=== PATIENT | male | born 1990 | race Caucasian/White ===

== ENCOUNTER 2018-04-07 21:26 | Emergency (ER) | payer OTHER, SELFPAY ==
[2018-04-07 21:27] VITALS: BP 142/67; PULSE 71; RESP 14; TEMP 37; O2SAT 98; BMI 24.7
[2018-04-07] MEDS: Ondansetron 4 MG/2 ML Vial IV ×2 (22:48→23:29)
[2018-04-07] MEDS: Ketorolac 30 MG/ML Syringe IV (22:48)
[2018-04-07] MEDS: 0.9% Normal Saline 1,000 ML 1000 ML IV (22:48)
[2018-04-07 22:57] LABS: Absolute Lymphocyte Count 2.38 X10^3/ul (0.83-4.51); Absolute Neutrophil Count 11.9 X10^3/uL (2.0-7.7); Basophil# 0.04 X10^3/uL; Basophil% 0.3 % (0-1); Eosinophil# 0.27 X10^3/uL; Eosinophils% 1.8 % (0-5); Hematocrit 47.3 % (40-54); Hemoglobin 16.3 g/dl (13.0-16.5); Lymphocyte # 2.38 X10^3/ul (4.0); Lymphocyte % 15.5 % (19-41); Mean Corp Hgb Conc 34.5 g/gl (32-36); Mean Corpuscular Hgb 31.8 pg (27.0-32.0); Mean Corpuscular Volume 92.4 fL (80-94); Mean Platelet Vol. 9.4 fl (6.2-12.0); Monocyte# 0.69 X10^3/uL; Monocyte% 4.5 % (0-10); Neutrophil # 11.92 X10^3/uL (2.7-7.7); Neutrophil % 77.8 % (47-70); Platelet Count 269 K/mm3 (150-450); RBC Distribution Width CV 12.7 % (11.6-14.6); RBC Distribution Width SD 43.1 fl (35.1-43.9); Red Blood Count 5.12 M/mm3 (4.6-6.2); White Blood Count 15.3 K/mm3 (4.4-11.0)
[2018-04-07 22:58] LABS: POSITIVE COUNT NO; POSITIVE DIFFERENTIAL NO; POSITIVE MORPHOLOGY NO
[2018-04-07 23:18] LABS: AST(SGOT) 57 U/L (15-37); Alanine Aminotransfer ALT/SGPT 63 U/L (16-61); Albumin, Serum 4.1 g/dL (3.2-5.0); Alkaline Phosphatase 58 U/L (45-117); Anion Gap 8 (5-15); BUN 10 mg/dL (7-18); BUN/Creat Ratio 12.6 RATIO (10-20); Bilirubin, Direct 0.15 mg/dL (0.00-0.30); Calcium,Total 8.7 mg/dL (8.5-10.1); Chloride 103 mmol/L (98-107); EST Glomerular Filtration Rate 121 mL/min (>60); Est Glom Filt Rate - Afr Amer 147 mL/min (>60); Estimated Creatinine Clearance 105.22 ml/min; Glucose 110 mg/dL (74-106); Lipase 111 U/L (73-393); Potassium 3.7 mmol/L (3.5-5.1); Protein, Total 7.1 g/dL (6.4-8.2); Sodium Level 139 mmol/L (136-145)
--- NOTE | 2018-04-07 23:22 | CT_ITS ---
STUDY: CT ABDOMEN AND PELVIS WITH CONTRAST REASON FOR EXAM: Male, 27 years old. EPIGASTRIC PAIN RADIATION DOSAGE (If Supplied By Facility): CTDIvol = ( 8.37 ) mGy, DLP = ( 326.13 ) mGycm TECHNIQUE: Transaxial images were obtained from the dome of the diaphragm to the symphysis pubis without oral contrast. 100 ml of Isovue 300 contrast was administered. Sagittal and coronal images were reconstructed. Individualized dose optimization techniques were used for this CT. COMPARISON: None. FINDINGS: The visualized lung bases are unremarkable. The visualized portions of the heart are within normal limits. Normal liver. Normal gallbladder and extrahepatic biliary system. Normal spleen. Normal pancreas. Normal bilateral adrenal glands. Normal right kidney. Normal left kidney. Normal visualized stomach. Normal small intestine. Normal colon. The appendix is visualized and appears normal. Normal abdominal aorta. Normal inferior vena cava. Normal retroperitoneum. Normal urinary bladder. There is a small umbilical hernia containing fat. Normal osseous structures. CT/Abdomen/Pelvis W IV Cont ONLY IMPRESSION: There is a small umbilical hernia containing fat. Electronically Signed: Imtiaz Berry MD at 0:45 EDT Tel , Service support ,
--- NOTE | 2018-04-07 23:56 | ED.VISSUMM ---
- ER Visit Summary Date of Service: 04/07/18 Chief Complaint: Nausea, vomiting and abdominal pain History of Present Illness: The patient is a 27 M past medical history of asthma. Prior hernia repair. Pt. states that around 430 this evening started having nausea vomiting and periumbilical abdominal pain. No fever. No diarrhea. No abdominal trauma. I spoke with the patient's father he states he had a lot of abdominal complaints when he was in high school. Physical Examination: Vital signs are stable. He is afebrile. He does not look septic or toxic. He is actively retching into an emesis. H EENT exam mildly dry mucous membranes. Otherwise unremarkable. Neck nontender. Lungs clear to auscultation bilaterally. Heart regular rhythm no murmur. Abdomen soft nondistended. Normal bowel sounds. No peritoneal signs. He is tender in the periumbilical and epigastric region. No hernias or masses. No signs of it. No significant right upper or right lower quadrant tenderness. No signs of trauma. Positive bowel sounds. He is moving all 4 extremities. They are neurovascularly intact. Back exam nontender. Neurologically is awake and alert. Test Results: CBC showed a elevated white count of 15,000. Normal hemoglobin. No bands. Electrolytes unremarkable. Normal gap and creatinine. Liver enzymes unremarkable ALT and AST slightly elevated. Lipase normal at 111. Emergency Department Course and Treatment: Patient treated with IV fluids times a liter. Zofran x2. Toradol IV x1. On repeat exam he is doing better at 2330. Still complaining of pain however. CT abdomen and pelvis with IV contrast only is pending. Currently he does not have a surgical abdomen. Treatment Plan: [] Disposition: Discharge Impression: Acute abdominal pain with nausea and vomiting of uncertain etiology This note was generated with [employer] dictation software. It may contain incorrect words, spelling, and punctuation that were not noted in review of the chart prior to signing ED Disposition - Plan for ED Patient: Chief Complaint: Nausea/Vomiting Referrals: Stan Escobar DO [Primary Care Provider] -
--- NOTE | 2018-04-08 | ED.DEP ---
ED Disposition - Plan for ED Patient: Disposition: Home or Assisted Living Chief Complaint: Nausea/Vomiting Instructions: ED Nausea Vomiting, ED Abdominal Pain Unkn Cause Prescriptions: Ondansetron [Zofran Odt] 4 mg PO Q4H PRN PRN #10 tab.rapdis PRN Reason: Nausea Referrals: Stan Escobar DO [Primary Care Provider] - 3-5 Days if not improving Additional Instructions: Zofran as needed for nausea. Plenty fluids and rest. Follow-up with your doctor. Return to ER feeling worse.
[2018-04-08 00:23] VITALS: BP 140/81; PULSE 60; RESP 16; O2SAT 97
[2018-04-08] MEDS: proMETHazine 25 MG/ML Syringe 12.5 MG IV (00:49)
[2018-04-08] MEDS: Morphine 4 MG/ML Syringe IV (00:49)
--- NOTE | 2018-04-08 00:51 | ED.DEP ---
ED Disposition - Plan for ED Patient: Disposition: Home or Assisted Living Chief Complaint: Nausea/Vomiting Instructions: ED Abdominal Pain Unkn Cause, ED Nausea Vomiting Prescriptions: Ondansetron [Zofran Odt] 4 mg PO Q4H PRN PRN #10 tab.rapdis PRN Reason: Nausea Dicyclomine HCl [Bentyl] 20 mg PO TIDAC #20 cap Referrals: Stan Escobar DO [Primary Care Provider] - 3-5 Days if not improving Additional Instructions: Zofran as needed for nausea. Plenty fluids and rest. Follow-up with your doctor. Return to ER feeling worse.
[2018-04-08 01:34] VITALS: BP 114/61; PULSE 48; RESP 17; O2SAT 98
--- NOTE | 2018-04-08 01:35 | ED.RN ---
IV DC'ED, CATHETER INTACT, SMALL GAUZE DRESSING PLACED. DISCHARGE INSTRUCTIONS GIVEN TO AND REVIEWED WITH PATIENT, PATIENT DENIES QUESTIONS OR CONCERNS AND VOICES UNDERSTANDING OF DISCHARGE INSTRUCTIONS. PT AMBULATES OUT OF ROOM WITHOUT DIFFICULTY.
== END 2018-04-08 01:35 | disposition home or self-care (01) ==
PROVIDERS: Emergency Medicine; Emergency Provider Emergency Medicine; Family Provider Pediatrics; PCP Pediatrics
DX: K42.9 Umbilical hernia without obstruction or gangrene (principal); R10.9 Unspecified abdominal pain; D72.829 Elevated white blood cell count, unspecified; R79.89 Other specified abnormal findings of blood chemistry; J45.909 Unspecified asthma, uncomplicated; Z72.0 Tobacco use
CPT/HCPCS: 74177; 80048; 80076; 83690; 85025; 96361; 96374; 96375; 96376; 99283; Q9967; A4216; J2405

== ENCOUNTER 2018-04-11 23:21 | Emergency (ER) | payer OTHER, SELFPAY ==
[2018-04-11 23:23] VITALS: BP 130/87; PULSE 85; RESP 16; TEMP 36.6; O2SAT 98; BMI 21.8
--- NOTE | 2018-04-11 23:52 | ED.DCSUM_ITS ---
- ER Visit Summary Date of Service: 04/11/18 Chief Complaint: Nausea and vomiting History of Present Illness: The patient is a 27 M patient seen 4 days ago for abdominal pain nausea and vomiting. Patient said since being discharged, pain is improved, however still has nausea and vomiting intermittently. States he would wake up thrown up. Zofran would help. Took 1 2 PM prior to work. No bowel movement for days. No fever, chills, sweats. History of left inguinal hernia repair by Dr. Bennett in the past. States he did go to the PCP office however could not get an appointment until September of next year. No urinary symptoms. Denies any illicit drug use. History of tobacco, occasional alcohol. Records reviewed, patient worked up for umbilical pain with a CT scan negative for appendicitis. White count of 15 at that time. Physical Examination: General: Alert and oriented ?3, no acute distress HEENT: Normocephalic, atraumatic. Dry mucosa membranes Neck: supple, nontender. Cardiovascular: Regular rate and rhythm, no murmurs Respiratory: Normal breath sounds, symmetric, no distress Abdomen: Soft, nontender, nondistended Extremities: Nontender, no edema, pulses intact ?4 Neuro: no focal neurological deficits. Test Results: WBC 11.1. Creatinine 0.87. Emergency Department Course and Treatment: Patient vitals stable, dry mucosa membranes. Given IV fluids, recheck labs, white count 11.1 improved from 15.8. Creatinine normal. Patient oral challenge in the ED. No complications. Abdomen remained benign. Patient stating persistent nausea and vomiting since being evaluated, no clinical obstructions with normal bowel sounds. Patient has seen Dr. Bennett in the past for hernia repair, discussed call for follow-up for further testing if needed. He does have Zofran at home. Signs and symptoms discussed to return. Treatment Plan: [] Disposition: Discharge Impression: Nausea and vomiting This note was generated with [employer] dictation software. It may contain incorrect words, spelling, and punctuation that were not noted in review of the chart prior to signing ED Disposition - Plan for ED Patient: Disposition: Home or Assisted Living Chief Complaint: Nausea/Vomiting Diagnosis: Nausea and vomiting Instructions: ED Nausea Vomiting Referrals: Stan Escoabr DO [Primary Care Provider] - Abilio Bennett MD [STAFF PHYSICIAN] - 3-5 Days
[2018-04-12] MEDS: Ondansetron 4 MG/2 ML Vial IV
[2018-04-12] MEDS: 0.9% Normal Saline 1,000 ML 1000 ML IV
[2018-04-12 00:13] LABS: Absolute Lymphocyte Count 3.36 X10^3/ul (0.83-4.51); Absolute Neutrophil Count 6.5 X10^3/uL (2.0-7.7); Basophil# 0.05 X10^3/uL; Basophil% 0.4 % (0-1); Eosinophil# 0.44 X10^3/uL; Hematocrit 46.6 % (40-54); Hemoglobin 16.2 g/dl (13.0-16.5); Lymphocyte # 3.36 X10^3/ul (4.0); Lymphocyte % 30.2 % (19-41); Mean Corp Hgb Conc 34.8 g/gl (32-36); Mean Corpuscular Volume 92.1 fL (80-94); Mean Platelet Vol. 9.3 fl (6.2-12.0); Monocyte# 0.77 X10^3/uL; Monocyte% 6.9 % (0-10); Neutrophil # 6.48 X10^3/uL (2.7-7.7); Neutrophil % 58.3 % (47-70); Platelet Count 287 K/mm3 (150-450); RBC Distribution Width CV 12.8 % (11.6-14.6); RBC Distribution Width SD 42.6 fl (35.1-43.9); Red Blood Count 5.06 M/mm3 (4.6-6.2); White Blood Count 11.1 K/mm3 (4.4-11.0)
[2018-04-12 00:15] LABS: POSITIVE COUNT NO; POSITIVE DIFFERENTIAL NO; POSITIVE MORPHOLOGY NO
[2018-04-12 00:23] LABS: Anion Gap 6 (5-15); BUN 6 mg/dL (7-18); BUN/Creat Ratio 6.9 RATIO (10-20); Calcium,Total 8.7 mg/dL (8.5-10.1); Chloride 102 mmol/L (98-107); Creatinine, Serum 0.87 mg/dL (0.70-1.30); EST Glomerular Filtration Rate 109 mL/min (>60); Est Glom Filt Rate - Afr Amer 132 mL/min (>60); Estimated Creatinine Clearance 108.63 ml/min; Glucose 97 mg/dL (74-106); Potassium 3.6 mmol/L (3.5-5.1); Sodium Level 139 mmol/L (136-145)
[2018-04-12 01:08] VITALS: BP 135/78; PULSE 86; RESP 18; O2SAT 97
== END 2018-04-12 02:12 | disposition home or self-care (01) ==
PROVIDERS: Emergency Provider Emergency Medicine; Family Provider Pediatrics; PCP Pediatrics
DX: R11.2 Nausea with vomiting, unspecified (principal); R10.33 Periumbilical pain; J45.909 Unspecified asthma, uncomplicated; Z72.0 Tobacco use
CPT/HCPCS: 80048; 85025; 96361; 96374; 99283; J7030; A4216; J2405

== ENCOUNTER 2018-05-05 06:04 | Day surgery (SDC) | payer OTHER, SELFPAY ==
[2018-05-05] VITALS (8 sets, daily range): BP systolic 96–128; BP diastolic 66–76; PULSE 51–85; RESP 16–18; TEMP 36.2–36.7; O2SAT 95–99; BMI 22.0
--- NOTE | 2018-05-05 | COLBX_PTH ---
PATIENT: EDGARDO JOSHI LOC: EN U#:[id number] AGE/SX: 28/M ROOM: RE05/05/[address]: Dr. Abilio Bennett MD : 1990 BED: DIS: 05/05/2018 SPEC #: [id number] RECD: 05/05/18 13:45 STATUS: SHAY FREEDOM #: [id number] ROCK: 05/05/18 00:[address]: Abilio Bennett DEPT: SURGICAL PATHOLOGY RECD BY: Jeison Oconnell ENTERED: 05/05/18 13:46 SP TYPE: COLON BX OTHR DR: No Primary Care Phys Tissues: A - Small intestine biopsy B - Gastric mucous membrane C - Ileum, NOS D - COLON BIOPSY Procedures: Surgery Specimen Level IV HEADER OPERATION: Colonoscopy, EGD [place] [place] PRE-OP DIAGNOSIS: Nausea, vomiting, left lower quadrant pain, constipation, bowel habit change TISSUE SUBMITTED: A - Biopsy of small bowel, B - Antrum biopsy for H. pylori and path, C - Biopsy of terminal ileum, D - Random colon biopsies MICROSCOPIC DIAGNOSIS A. Small bowel, biopsy: A fragment of small intestinal mucosa, no pathologic diagnosis. B. Antrum, biopsy: Mild gastritis. C. Terminal ileum, biopsy: Consistent with lymphocytic enteritis. D. Colon, random biopsy: Fragments of colonic mucosa, no pathologic diagnosis. SJ:juan jose 05/06/18 COMMENT B. The results of immunohistochemistry for Helicobacter pylori will be reported separately ([id number]). Correlation with clinical, endoscopic findings and appropriate follow up are necessary. Case has been reviewed in consultation with Dr. Ragsdale who concurs with the above diagnosis. IDC:AM MICROSCOPIC DESCRIPTION Slides are reviewed. B. The specimen shows fragments of gastric mucosa with chronic inflammatory cell infiltrates in the lamina propria consisting of lymphocytes and plasma cells, consistent with mild chronic gastritis. C. The specimen shows fragments of small intestinal mucosa with focal flattening of villi and increased number of intraepithelial lymphocytes consistent with lymphocytic enteritis. 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 GROSS DESCRIPTION A - Received in fixative is one container labeled with the patient's name and designated biopsy of small bowel. The specimen consists of one irregular fragment of light griffin soft tissue that measures 0.5 x 0.3 x 0.1 cm. The specimen is totally submitted in one cassette. B - Received in fixative is one container labeled with the patient's name and designated antrum biopsy. The specimen consists of one irregular fragment of light griffin soft tissue that measures 1 x 0.3 x 0.1 cm. The specimen is totally submitted in one cassette. C - Received in fixative is one container labeled with the patient's name and designated biopsy of terminal ileum. The specimen consists of two irregular fragments of light griffin soft tissue that in aggregate measure 0.5 x 0.3 x 0.1 cm. The specimen is totally submitted in one cassette. D - Received in fixative is one container labeled with the patient's name and designated random colon biopsy. The specimen consists of multiple irregular fragments of light griffin soft tissue that in aggregate measure 1.5 x 0.7 x 0.1 cm. The specimen is totally submitted in one cassette. / AGA:juan jose 05/05/18 TC:3 CPT: 71073 x4
--- NOTE | 2018-05-05 07:30 | IMM_PTH ---
PATIENT: EDGARDO JOSHI LOC: EN U#:[id number] AGE/SX: 28/M ROOM: RE05/05/[address]: Dr. Abilio Bennett MD : 1990 BED: DIS: 05/05/2018 SPEC #: [id number] RECD: 05/05/18 14:40 STATUS: SHAY FREEDOM #: [id number] ROCK: 05/05/18 07:[address]: Abilio Bennett DEPT: IMMUNOHISTOCHEMISTRY RECD BY: Юлия Mitchell ENTERED: 05/05/18 14:40 SP TYPE: IMMUNO OTHR DR: No Primary Care Phys Tissues: B - Stomach, NOS Procedures: H Pylori (initial) PHYSICIAN & INSTITUTION [place] [id number] SPECIMEN INFORMATION: Tissue Source: B - Antrum biopsy Clinical Info: Nausea and vomiting, left lower quadrant pain, bowel habit changes Specimen Number: [id number] CPT code: 36770 METHODOLOGY: Deparaffinized sections of prefer/formalin-fixed tissue or PAP/DQ stained slides are incubated with monoclonal/polyclonal antibodies/oligonucleotide probes. Localization is made via biotin free immunoperoxidase method. Appropriate controls are performed and reacted as expected. Results on target cell population are indicated in the following table: RESULTS: ANTIBODY / CLONE RESULT Block B H Pylori (polyclonal) negative These tests were developed and their performance characteristics determined by [facility]. They may not have been cleared or approved by the U.S. Food and Drug Administration. The FDA has determined that such clearance or approval is not necessary. INTERPRETATION: B. Antrum, biopsy: Negative for Helicobacter pylori organisms. SJ:juan jose 05/07/18
--- NOTE | 2018-05-05 07:59 | OP.ENDO_ITS ---
Patient Name: Rk Doan Procedure Date: 05/05/2018 7:28 AM Date of : 1990 Age: 28 Procedure: Upper GI endoscopy Indications: Abdominal pain in the left lower quadrant, Nausea with vomiting Providers: Abilio Bennett MD Referring MD: Abilio Bennett MD Medicines: See the Anesthesia note for documentation of the administered medications Complications: No immediate complications. Procedure: Pre-Anesthesia Assessment: - Prior to the procedure, a History and Physical was performed, and patient medications and allergies were reviewed. The patient's tolerance of previous anesthesia was also reviewed. The risks and benefits of the procedure and the sedation options and risks were discussed with the patient. All questions were answered, and informed consent was obtained. Prior Anticoagulants: The patient has taken no previous anticoagulant or antiplatelet agents. ASA Grade Assessment: II - A patient with mild systemic disease. After reviewing the risks and benefits, the patient was deemed in satisfactory condition to undergo the procedure. After obtaining informed consent, the endoscope was passed under direct vision. Throughout the procedure, the patient's blood pressure, pulse, and oxygen saturations were monitored continuously. The gastroscope was introduced through the mouth, and advanced to the second part of duodenum. The upper GI endoscopy was accomplished without difficulty. The patient tolerated the procedure well. Scope In: 7:35:59 AM Scope Out: 7:39:07 AM Total Procedure Duration Time 0 hours 3 minutes 8 seconds Findings: The Z-line was regular and was found 40 cm from the incisors. No biopsies or other specimens were collected for this exam. Localized minimal inflammation characterized by erythema was found in the prepyloric region of the stomach. Biopsies were taken with a cold forceps for Helicobacter pylori testing. The examined duodenum was normal. Biopsies for histology were taken with a cold forceps for evaluation of celiac disease. Impression: - Z-line regular, 40 cm from the incisors. No specimens collected. - Gastritis. Biopsied. - Normal examined duodenum. Biopsied. Recommendation: - Await pathology results. - Repeat upper endoscopy PRN for surveillance based on pathology results. - Return to my office in 1 week. - Continue present medications. Procedure Code(s): --- Professional --- 00617, Esophagogastroduodenoscopy, flexible, transoral; with biopsy, single or multiple Diagnosis Code(s): --- Professional --- K29.70, Gastritis, unspecified, without bleeding R10.32, Left lower quadrant pain R11.2, Nausea with vomiting, unspecified CPT copyright 2017 [employer]. All rights reserved. The codes documented in this report are preliminary and upon decal decorator review may be revised to meet current compliance requirements. MD Abilio Stapleton MD 05/05/2018 7:58:19 AM This report has been signed electronically. Number of Addenda: 0 Note Initiated On: 05/05/2018 7:28 AM
--- NOTE | 2018-05-05 08:03 | OP.ENDO_ITS ---
Patient Name: Rk Doan Procedure Date: 05/05/2018 7:40 AM Date of : 1990 Age: 28 Procedure: Colonoscopy Indications: Abdominal pain in the left lower quadrant, Change in bowel habits, Constipation Providers: Abilio Bennett MD Referring MD: Abilio Bennett MD Medicines: See the Anesthesia note for documentation of the administered medications Patient Profile: Last Colonoscopy: none. The patient's first colonoscopy is today. Complications: No immediate complications. Procedure: Pre-Anesthesia Assessment: - Prior to the procedure, a History and Physical was performed, and patient medications and allergies were reviewed. The patient's tolerance of previous anesthesia was also reviewed. The risks and benefits of the procedure and the sedation options and risks were discussed with the patient. All questions were answered, and informed consent was obtained. Prior Anticoagulants: The patient has taken no previous anticoagulant or antiplatelet agents. ASA Grade Assessment: II - A patient with mild systemic disease. After reviewing the risks and benefits, the patient was deemed in satisfactory condition to undergo the procedure. After I obtained informed consent, the scope was passed under direct vision. Throughout the procedure, the patient's blood pressure, pulse, and oxygen saturations were monitored continuously. The adult colonoscope was introduced through the anus and advanced to 3 cm into the ileum. The colonoscopy was performed without difficulty. The patient tolerated the procedure well. The quality of the bowel preparation was excellent. Scope In: 7:42:00 AM Scope Withdrawal Time 0 hours 7 minutes 30 seconds Scope Out: 7:52:12 AM Total Procedure Duration Time 0 hours 10 minutes 12 seconds Findings: The colon (entire examined portion) appeared normal. Biopsies for histology were taken with a cold forceps from the entire colon for evaluation of microscopic colitis. With blowing up the rectum there was some irritation which was iatrogenic. The terminal ileum appeared normal. Biopsies were taken with a cold forceps for histology. The exam was otherwise without abnormality on direct and retroflexion views. Impression: - The entire examined colon is normal. Biopsied. - The examined portion of the ileum was normal. Biopsied. - The examination was otherwise normal on direct and retroflexion views. Recommendation: - Discharge patient to home. - Resume previous diet. - Continue present medications. - Await pathology results. - Repeat colonoscopy in 10 years for surveillance based on pathology results. - Return to my office in 1 week. Procedure Code(s): --- Professional --- 92105, Colonoscopy, flexible; with biopsy, single or multiple Diagnosis Code(s): --- Professional --- R10.32, Left lower quadrant pain R19.4, Change in bowel habit K59.00, Constipation, unspecified CPT copyright 2017 [employer]. All rights reserved. The codes documented in this report are preliminary and upon outpatient coder review may be revised to meet current compliance requirements. MD Abilio Stapleton MD 05/05/2018 8:02:48 AM This report has been signed electronically. Number of Addenda: 0 Note Initiated On: 05/05/2018 7:40 AM
== END 2018-05-05 08:51 | disposition home or self-care (01) ==
LOC: EN 06:04 → AC 06:05
PROVIDERS: Referring Provider Surgery; Visit Provider Surgery
PROC: 0DJD8ZZ Inspection of Lower Intestinal Tract, Via Natural or Artificial Opening Endoscopic (ICD-10-PCS; CPT 45378; principal; 2018-05-05 07:25)
DX: K29.70 Gastritis, unspecified, without bleeding (principal); R10.32 Left lower quadrant pain; K59.00 Constipation, unspecified; J45.909 Unspecified asthma, uncomplicated; F17.200 Nicotine dependence, unspecified, uncomplicated
CPT/HCPCS: 43239; 45380; 88305; 88342; J7120; J1610

== ENCOUNTER → 2018-05-13 09:45 | Outpatient (CLI) | payer OTHER, SELFPAY ==
[2018-05-14 16:10] LABS: Endomysial Antibody IgA Negative (Negative)
[2018-05-16 11:36] LABS: Immunoglobulin A 150 mg/dL (90-386); t-Transglutaminase IgA <2 U/mL (0-3)
== END ==
PROVIDERS: Referring Provider Physician Assistant; Visit Provider Physician Assistant
DX: R11.2 Nausea with vomiting, unspecified (principal)
CPT/HCPCS: 36415; 82784; 83516; 86255

== ENCOUNTER 2018-09-08 23:06 | Emergency (ER) | payer OTHER, SELFPAY ==
[2018-09-08 23:07] VITALS: BP 159/73; PULSE 92; RESP 18; TEMP 37; O2SAT 99; BMI 22.6
[2018-09-08 23:12] VITALS: BP 159/73; PULSE 98; RESP 16; TEMP 37; O2SAT 97
--- NOTE | 2018-09-08 23:13 | RAD_ITS ---
STUDY: X-RAY CHEST REASON FOR EXAM: Male, 28 years old. Cough TECHNIQUE: Frontal and lateral views of the chest. COMPARISON: November 15, 2010 FINDINGS: The lungs are clear and expanded. There is no demonstrated pleural abnormality. Normal size heart. Normal mediastinum and juany. Normal visualized pulmonary arteries. Normal visualized aortic arch and descending thoracic aorta. Normal visualized thoracic spine. Normal visualized ribs, clavicles, and shoulders. There is no demonstrated abnormality of the visualized soft tissue structures of the upper abdomen. RAD/Chest PA and Lateral IMPRESSION: Normal x-ray examination of the chest. Electronically Signed: Marcellus Askew MD at 23:40 EST , Service support ,
--- NOTE | 2018-09-08 23:15 | ED.DCSUM_ITS ---
- ER Visit Summary Date of Service: 09/08/18 Chief Complaint: Cough History of Present Illness: The patient is a 28 M presents to the emergency department cough and myalgias. The patient does have history of asthma. He states his inhalers recently run out. He states for the past month, he is been sick for separate times. Over the past 3 days, he feels like he is worsened. He had cough with scant sputum. He is also been nauseated. He is unsure if he had fever but does admit to sweats and chills. States he tried to go to work tonight and was just feeling weak and worn out. Denies any abdominal pain. He denies any history of immunosuppression. Physical Examination: Vital signs reviewed General: Well-nourished, well-developed Head: Normocephalic, atraumatic Eyes: Pupils equal and reactive, extraocular muscles intact Neck, supple, no lymphadenopathy Heart: Regular rate and rhythm Respiratory: No distress, wheezing in all lung gamino Abdomen: Soft, nontender, nondistended, no peritoneal signs Back: Nontender Extremities: Nontender, no edema, no cords Skin: Normal color no rash Neuro: Alert and oriented, no focal or lateralizing deficits Test Results: [] Emergency Department Course and Treatment: Patient presents with cough, myalgias, and wheezing. He did have wheezing in all lung gamino, but had some scant rhonchi in his right upper lobe. Patient was given nebulized breathing treatments. He had improvement of his aeration. Chest x-ray is unremarkable. I do concerned that he may be developing a pneumonia given his focal change in lung sounds. I do feel the most prudent thing would be to cover him with azithromycin. He is comfortable with this plan of care. He has no hypoxia. Is not tachypneic. On reevaluation is resting comfortably. I do feel it is safe for outpatient therapy. Treatment Plan: [] Disposition: Discharge Impression: 1. Acute infectious bronchitis This note was generated with [employer] dictation software. It may contain incorrect words, spelling, and punctuation that were not noted in review of the chart prior to signing ED Disposition - Plan for ED Patient: Instructions: ED Upper Resp Infec Abx Tx Prescriptions: Albuterol Inhaler [Ventolin Hfa] 2 puff INHALATION Q4H PRN PRN #1 inhaler PRN Reason: Wheezing Azithromycin [Zithromax] 250 mg PO DAILY #4 tab Prednisone [Deltasone] 40 mg PO DAILY #10 tab Referrals: Care Physician,No Primary [Primary Care Provider] -
[2018-09-08] MEDS: Ondansetron ODT 4 MG Tablet PO (23:17)
[2018-09-08] MEDS: predniSONE 20 MG Tablet 60 MG PO (23:17)
[2018-09-08] MEDS: Ipratropium/Albuterol Sulfate 3 ML AMPUL.NEB INHALATION (23:17)
[2018-09-08 23:20] VITALS: PULSE 100; RESP 16
[2018-09-08] MEDS: Azithromycin 250 MG Tablet 500 MG PO (23:53)
[2018-09-08 23:58] VITALS: BP 133/73; PULSE 75; RESP 15; O2SAT 98
== END 2018-09-08 23:59 | disposition home or self-care (01) ==
LOC: ED 23:23
PROVIDERS: Emergency Provider Emergency Medicine
DX: J20.9 Acute bronchitis, unspecified (principal); J45.909 Unspecified asthma, uncomplicated; Z79.899 Other long term (current) drug therapy; Z87.891 Personal history of nicotine dependence
CPT/HCPCS: 71046; 94640; 99283

== ENCOUNTER 2019-06-22 21:31 | Emergency (ER) | payer SELFPAY ==
[2019-06-22 21:32] VITALS: BP 152/110; PULSE 94; RESP 15; TEMP 36.4; O2SAT 96; BMI 22.0
--- NOTE | 2019-06-22 22:44 | ED.VIS.GEN ---
History of Present Illness Chief Complaint: General Illness Detail of Chief Complaint: Cough and body aches Informant: Patient Onset: Days Context: Gradual Onset Timing: Waxes and wanes Current Severity: Mild Maximum Severity: Moderate Narrative: Patient presents with a 2 to 3-day history of feeling very fatigued and having body aches. He has had cough for the past 3 or 4 days. He states he feels like he has chest congestion but is not bringing up any sputum. He has had subjective fever at home. He does have a history of asthma and feels like he is wheezing some, but no worse than baseline. He did not get a flu shot this year. He has no known sick contacts. - Past Medical History (1) Asthma Status: Chronic (2) GERD (gastroesophageal reflux disease) Status: Chronic Past Medical History - Allergies and Home Meds Allergies/Adverse Reactions: Allergies acetaminophen [From Darvocet-N] Allergy (Unknown, Verified 06/22/19 21:35) unknown codeine [From Tylenol-Codeine #3] Allergy (Unknown, Verified 06/22/19 21:35) unknown propoxyphene [From Darvocet-N] Allergy (Unknown, Verified 06/22/19 21:35) unknown Primary Care Physician: Stan Escobar DO [Primary Care Provider] - Prior records reviewed: Yes Smoking Status: Current every day smoker Review of Systems General: Reports: Chills, Fever, Subjective, Sweats Eyes: Denies: Visual changes - bilaterally ENT: Denies: Bilateral ear pain, Sore throat Cardiovascular: Denies: Chest pain Respiratory: Reports: Dyspnea, Cough. Denies: Sputum Gastrointestinal: Denies: Abdominal pain, Nausea, Vomiting, Diarrhea Genitourinary: Denies: Dysuria Musculoskeletal: Reports: Myalgias Skin: Denies: Rash Neurological: Denies: Headache Hematologic: Denies: Easy bruising, Easy bleeding Allergy: Denies: Uticaria Physical Exam Vital Signs/Narrative: Vital Signs Temp Pulse Resp BP Pulse Ox 06/22/19 21:32 97.6 F L 94 15 152/110 H 96 Inital Vital Signs reviewed: Yes General: Well nourished, Well developed Head: Normocephalic ENT: Moist mucous membranes, TM's clear Neck: Supple Cardiovascular: Regular rate, Regular rhythm Respiratory: No distress, CTA bilaterally Abdomen: Soft, Nontender, Normal bowel sounds Extremities: Nontender Skin: Normal color, No rash Neurological: Alert, Oriented x3 Psychological: Normal affect Diagnostic/Tx/Re-eval Impressions Chest X-Ray 06/22/19 22:50 IMPRESSION: Normal x-ray examination of the chest. Electronically Signed: Nik Blackwood DO at 23:28 EST Tel [phone], Service support , 06/22/19 22:50 Chest PA and Lateral [RAD] Stat - Medical Decision Making Patient was given naproxen here for body aches. I discussed with him that believe his symptoms are all related to viral syndrome. There is no evidence of infiltrate on chest x-ray. He will be given a prescription for naproxen. ED Disposition - Plan for ED Patient: Disposition: Home or Assisted Living Diagnosis: Viral syndrome Instructions: VIRAL SYNDROME (Adult) Prescriptions: Naproxen [Naprosyn] 500 mg PO BID PRN PRN #20 tab PRN Reason: Pain Score 1-10/10 Transmission Status: Pending to [facility] [place] [facility][id number] Referrals: Ethan Bowers MD [NON-STAFF] -
--- NOTE | 2019-06-22 22:50 | RAD_ITS ---
STUDY: X-RAY CHEST REASON FOR EXAM: Male, 29 years old. Pain, cough TECHNIQUE: Frontal and lateral views COMPARISON: September 08, 2018 FINDINGS: The lungs are clear and expanded. There is no demonstrated pleural abnormality. Normal size heart. Normal mediastinum and juany. Normal visualized pulmonary arteries. Normal visualized aortic arch and descending thoracic aorta. Normal visualized thoracic spine. Normal visualized ribs, clavicles, and shoulders. There is no demonstrated abnormality of the visualized soft tissue structures of the upper abdomen. RAD/Chest PA and Lateral IMPRESSION: Normal x-ray examination of the chest. Electronically Signed: Nik Blackwood DO at 23:28 EST Tel [phone], Service support ,
[2019-06-22] MEDS: Naproxen 500 MG Tablet PO (23:04)
== END 2019-06-22 23:42 | disposition home or self-care (01) ==
PROVIDERS: Emergency Provider Emergency Medicine; Family Provider Pediatrics; PCP Pediatrics
DX: B34.9 Viral infection, unspecified (principal); R05 Cough; J45.909 Unspecified asthma, uncomplicated; K21.9 Gastro-esophageal reflux disease without esophagitis; F17.200 Nicotine dependence, unspecified, uncomplicated; Z88.5 Allergy status to narcotic agent; Z88.6 Allergy status to analgesic agent
CPT/HCPCS: 71046; 99283

== ENCOUNTER 2022-10-13 01:36 | Emergency (ER) | payer BC, SELFPAY ==
[2022-10-13 01:38] VITALS: BP 125/79; PULSE 111; RESP 22; TEMP 36.7; O2SAT 98; BMI 20.2
[2022-10-13] MEDS: proCHLORPERazine 10 MG/2 ML Vial IV (02:32)
[2022-10-13 02:34] LABS: Absolute Lymphocyte Count 1.38 X10^3/uL (0.83-4.51); Absolute Neutrophil Count 8.5 X10^3/uL (2.0-7.7); Basophil# 0.07 X10^3/uL; Basophil% 0.6 % (0-1); Eosinophil# 0.14 X10^3/uL; Eosinophils% 1.3 % (0-5); Hematocrit 49.1 % (40-54); Hemoglobin 17.4 g/dL (13.0-16.5); Lymphocyte # 1.38 X10^3/ul (0.83-4.51); Lymphocyte % 12.4 % (19-41); Mean Corp Hgb Conc 35.4 g/dL (32-36); Mean Corpuscular Volume 90.4 fL (80-94); Mean Platelet Vol. 9.9 fl (6.2-12.0); Monocyte# 1.03 X10^3/uL; Monocyte% 9.2 % (0-10); NRBC Flagged by Analyzer 0 % (0-5); Neutrophil % 76.2 % (47-70); Platelet Count 308 K/mm3 (150-450); RBC Distribution Width CV 12.3 % (11.6-14.6); RBC Distribution Width SD 40.5 fl (35.1-43.9); Red Blood Count 5.43 M/mm3 (4.6-6.2); White Blood Count 11.2 K/mm3 (4.4-11.0)
[2022-10-13] MEDS: 0.9% Normal Saline 1,000 ML 999 ML IV ×2 (02:34→03:18)
[2022-10-13 02:57] LABS: AST(SGOT) 19 U/L (15-37); Alanine Aminotransfer ALT/SGPT 20 U/L (16-61); Albumin, Serum 3.7 g/dL (3.2-5.0); Alkaline Phosphatase 55 U/L (45-117); Anion Gap 7 (5-15); BUN 12 mg/dL (7-18); BUN/Creat Ratio 13.2 RATIO (10-20); Bilirubin, Direct 0.12 mg/dL (0.00-0.30); Calcium,Total 9.4 mg/dL (8.5-10.1); Chloride 102 mmol/L (98-107); Creatinine, Serum 0.91 mg/dL (0.70-1.30); EST Glomerular Filtration Rate 101 mL/min (>60); Est Glom Filt Rate - Afr Amer 122 mL/min (>60); Estimated Creatinine Clearance 92.22 ml/min; Globulin 3.6 g/dL (2.2-4.2); Glucose 104 mg/dL (74-106); Lipase 64 U/L (73-393); Magnesium 1.8 mg/dL (1.6-2.6); Potassium 3.7 mmol/L (3.5-5.1); Protein, Total 7.3 g/dL (6.4-8.2); Sodium Level 137 mmol/L (136-145)
[2022-10-13] MEDS: Diphenoxylate/Atrop 1 Tablet 2 TABLET PO (03:42)
--- NOTE | 2022-10-13 04:28 | EX.ED.DYSGE1 ---
HPI History of Present Illness Chief Complaint: Nausea/Vomiting/Diarrhea Narrative Narrative: Patient is a 32-year-old male with past medical history of asthma and GERD. He reports his daughter has been sick for the past week with bouts of nausea vomiting diarrhea. He states in the last 2 days he developed generalized abdominal discomfort with bouts of vomiting and now has loose stool/diarrhea. He denies any recent antibiotic use or travel outside the country or exposure to livestock. He denies any history of intestinal disorder such as ulcer colitis Crohn's disease or IBS. He states has not been able to keep any food or fluid down and is concerned for dehydration and with this comes in for evaluation [facility] Medical History (Updated 10/13/22 @ 06:[address] Glenn Mays, DO) Acute pharyngitis, unspecified Constipation Encounter for screening for COVID-19 Finger contusion Nausea and vomiting Home Medications albuterol sulfate 90 mcg/actuation breath activated powder inhaler 2 puff inhalation Q6H PRN Sob &/Or Wheezing 04/15/18 [History Last Taken Unknown] albuterol sulfate 90 mcg/actuation aerosol inhaler 2 puff inhalation Q4H PRN PRN Wheezing ##1 09/08/18 [Rx Last Taken Unknown] buspirone 15 mg tablet 15 tablet PO DAILY 07/12/21 [History Last Taken Unknown] aripiprazole 20 mg tablet 20 mg PO DAILY 10/13/22 [History Last Taken Unknown] diphenoxylate-atropine 2.5 mg-0.025 mg tablet (Lomotil) 1 tab PO 4X/DAY PRN PRN diarrhea 5 days #20 tabs 10/13/22 [Rx Last Taken Unknown] prochlorperazine maleate 10 mg tablet (Compazine) 10 mg PO TID PRN nausea and vomiting #21 tabs 10/13/22 [Rx Last Taken Unknown] Allergy/AdvReac Type Severity Reaction Status Date / Time acetaminophen Allergy Unknown Nausea Verified 10/13/22 01:40 [From Darvocet-N] codeine Allergy Unknown Nausea Verified 10/13/22 01:40 [From Tylenol-Codeine #3] propoxyphene Allergy Unknown Nausea Verified 10/13/22 01:40 [From Darvocet-N] Family History Father Asthma Hypertension Stomach ulcer Mother Arthritis Surgical History History of esophagogastroduodenoscopy (EGD) History of left inguinal hernia repair History of toe surgery history testicular tortion surgery Hx of colonoscopy Social History Smoking Status: Current every day smoker tobacco type: cigarettes alcohol intake: current alcohol intake frequency: a few times a week substance use type: does not use ROS ROS ED Constitutional Constitutional ED: Denies chills or fever(s) ENT ENT ED: Denies sore throat Cardiovascular Cardiovascular: Denies chest pain Respiratory/Chest Respiratory/Chest: Denies cough or dyspnea Gastrointestinal Gastrointestinal: Reports abdominal pain, diarrhea, nausea and vomiting Genitourinary Genitourinary ED: Denies dysuria Musculoskeletal Musculoskeletal: Reports myalgias Integumentary Denies rash Neurologic Neurologic: Denies headache(s) Hematologic/Lymphatic Hematologic/Lymphatic: Denies easy bleeding or easy bruising EXAM Physical Exam Const Vital Signs: 10/13/22 01:38 10/13/22 04:37 Temperature 98.0 F Temperature Source Temporal Pulse Rate 111 H 90 Respiratory Rate 22 H 16 Blood Pressure 125/79 H 120/62 Blood Pressure Mean 94 Pulse Ox 98 Oxygen Delivery Method Room Air Positive well nourished and well developed General Appearance ED: well developed HEENT Reports dry mucous membranes HEENT Narrative: Mucous membranes are mildly dry and tacky with out secondary changes to suggest infection Mouth ED: Yes dry mucous membranes Mouth: dry mucous membranes Eyes PERRL and EOMs intact bilaterally General Eye ED: Negative for scleral icterus Neck supple Neck Narrative: No nuchal rigidity or meningeal signs present Resp normal respiratory effort and clear to auscultation bilaterally Cardio regular rate and regular rhythm GI non-distended GI Narrative: Abdomen is soft and nondistended with hyperactive bowel sounds. There is mild diffuse pain with palpation without voluntary guarding or rigidity Auscultation: hyperactive bowel sounds Palpation: soft Extremity normal to inspection Neuro oriented x3 and CN's II-XII intact bilaterally Sensorium / Orientation: alert Psych mental status grossly normal Skin no rashes or lesions noted Skin Narrative: Skin turgor is slightly increased General Skin Exam: Negative for jaundice MDM MDM MDM Narrative Medical decision making narrative: Patient presented to the ER slightly tachycardic but otherwise afebrile. History and exam is most consistent with a viral gastroenteritis. However with concern this could be secondary to biliary dysfunction or pancreatitis or patient's bouts of nausea vomiting diarrhea could have led to acute kidney injury or severe electrolyte disturbance basic laboratory studies were obtained. Labs revealed no clinically significant findings. After patient was given 2 L of fluid Compazine and Lomotil he had improvement of his symptoms and on reevaluation abdomen remains soft and nonsurgical. Therefore at this time as his work-up is most consistent with viral stomach infection and he does not have signs of severe electrolyte derangement or acute kidney injury he is otherwise safe for discharge History & Record Review Discussion w/independent historian: Patient Lab Data Attestation: I reviewed the patient's lab results. Labs: Laboratory Results - last 24 hr 10/13/22 10/13/22 01:45 01:45 WBC 11.2 H RBC 5.43 Hgb 17.4 H Hct 49.1 MCV 90.4 MCH 32.0 MCHC 35.4 RDW Std Deviation 40.5 RDW Coeff of Rupinder 12.3 Plt Count 308 MPV 9.9 Immature Gran % (Auto) 0.300 Neut % (Auto) 76.2 H Lymph % (Auto) 12.4 L [place] % (Auto) 9.2 Eos % (Auto) 1.3 Baso % (Auto) 0.6 Absolute Neuts (auto) 8.5 H Absolute Lymphs (auto) 1.38 Nucleated RBC % 0 Sodium 137 Potassium 3.7 Chloride 102 Carbon Dioxide 28.0 Anion Gap 7 BUN 12 Creatinine 0.91 Estim Creat Clear Calc 92.22 Est GFR (MDRD) Af Amer 122 Est GFR (MDRD) Non-Af 101 BUN/Creatinine Ratio 13.2 Glucose 104 Calcium 9.4 Magnesium 1.8 Total Bilirubin 0.40 Direct Bilirubin 0.12 AST 19 ALT 20 Alkaline Phosphatase 55 Total Protein 7.3 Albumin 3.7 Globulin 3.6 Lipase 64 L Discharge Plan Triage Chief Complaint: Nausea/Vomiting/Diarrhea ED Provider: Glenn Mays Dx/Rx/DC Orders Clinical Impression: Nausea vomiting and diarrhea, Mild dehydration Instructions: ED Gastroenteritis, Viral (Adult) Prescriptions: New prochlorperazine maleate [Compazine] 10 mg tablet 10 mg PO TID PRN (Reason: nausea and vomiting) Qty: 21 0RF diphenoxylate-atropine [Lomotil] 2.5-0.025 mg tablet 1 tab PO 4X/DAY PRN PRN (Reason: diarrhea) 5 Days Qty: 20 0RF No Action albuterol sulfate 90 mcg/actuation aerosol powdr breath activated 2 puff INHALATION Q6H PRN (Reason: Sob &/Or Wheezing) buspirone 15 mg tablet 15 tablet PO DAILY albuterol sulfate 1 INHALER inhaler 2 puff inhalation Q4H PRN PRN (Reason: Wheezing) Qty: 1 0RF aripiprazole 20 mg tablet 20 mg PO DAILY Label Comments: Take 1 tablet by mouth once daily. Stand Alone Forms: ED Work / School Excuse Primary Care Provider: Stan Escobar Referrals: Stan Escobar DO [Primary Care Provider] - Activity Restrictions/Additional Instructions: Your work-up showed changes consistent with a viral stomach infection but no severe kidney issues or signs of electrolyte disturbance. This viral stomach infection will last 3 to 7 days. Take the medication as directed control your symptoms and return to the ER should you have any further concerns Disposition Disposition: Home, Self Care Discharge Date/Time: 10/13/22 04:37
[2022-10-13 04:37] VITALS: BP 120/62; PULSE 90; RESP 16
== END 2022-10-13 04:37 | disposition home or self-care (01) ==
PROVIDERS: Emergency Provider Emergency Medicine; PCP Pediatrics; Visit Provider Emergency Medicine
DX: R11.2 Nausea with vomiting, unspecified (principal); E86.0 Dehydration; R10.84 Generalized abdominal pain; J45.909 Unspecified asthma, uncomplicated; K21.9 Gastro-esophageal reflux disease without esophagitis; F17.210 Nicotine dependence, cigarettes, uncomplicated
CPT/HCPCS: 80048; 80076; 83690; 83735; 85025; 96361; 96374; 99284; J7030

== ENCOUNTER 2024-05-12 07:44 | Emergency (ER) | payer SELFPAY ==
[2024-05-12 07:44] VITALS: BP 133/90; PULSE 77; RESP 16; TEMP 36.8; O2SAT 98; BMI 20.6
--- NOTE | 2024-05-12 08:21 | ED.VIS.DENTA ---
HPI History of Present Illness Chief Complaint: Dental Informant: patient Onset/Context/Timing Onset: Today and Yesterday Context: Gradual Onset Current Severity: Mild Maximum Severity: Mild Associated Symptoms Assocated Symptom - Dental: jaw swelling Narrative Narrative: 34-year-old male history of asthma and anxiety. Complaining of left lower jaw swelling and pain since yesterday. No trouble swallowing or breathing. No fever. No trauma. Prior similar symptoms: No Recent Illness/Hospitalization: No PFSH PFSH Medical History Encounter for screening for COVID-19 Acute pharyngitis, unspecified Constipation Nausea and vomiting Finger contusion Home Medications ?Medication ?Instructions ?Recorded ?Last Taken ?Type albuterol sulfate 90 mcg/actuation 2 puff inhalation Q6H PRN Sob &/Or 04/15/18 Unknown History breath activated powder inhaler Wheezing albuterol sulfate 90 mcg/actuation 2 puff inhalation Q4H PRN PRN 09/08/18 Unknown Rx aerosol inhaler Wheezing ##1 buspirone 15 mg tablet 15 tablet PO DAILY 07/12/21 Unknown History aripiprazole 20 mg tablet 20 mg PO DAILY 10/13/22 Unknown History diphenoxylate-atropine 2.5 1 tab PO 4X/DAY PRN PRN diarrhea 5 10/13/22 Unknown Rx mg-0.025 mg tablet (Lomotil) days #20 tabs prochlorperazine maleate 10 mg 10 mg PO TID PRN nausea and 10/13/22 Unknown Rx tablet (Compazine) vomiting #21 tabs penicillin V potassium 500 mg 500 mg PO 4X/DAY #40 tabs 05/12/24 Unknown Rx tablet Allergy/AdvReac Type Severity Reaction Status Date / Time codeine (From Allergy Unknown Nausea Verified 05/12/24 07:47 Tylenol-Codeine #3) propoxyphene (From Allergy Unknown Nausea Verified 05/12/24 07:47 Darvocet-N) Family History Father Asthma Hypertension Stomach ulcer Mother Arthritis Surgical History Hx of colonoscopy History of esophagogastroduodenoscopy (EGD) history testicular tortion surgery History of toe surgery History of left inguinal hernia repair Social History Smoking Status: Current every day smoker tobacco type: cigarettes alcohol intake: current alcohol intake frequency: a few times a week substance use type: does not use ROS ROS ED ROS Narrative Left lower jaw pain and swelling. Constitutional Constitutional ED: Denies chills or fever(s) Eyes Eyes: Denies blurry vision ENT ENT ED: Denies ear pain Cardiovascular Cardiovascular: Denies chest pain Respiratory/Chest Respiratory/Chest: Denies cough or dyspnea Gastrointestinal Gastrointestinal: Denies abdominal pain Genitourinary Genitourinary ED: Denies dysuria or hematuria Musculoskeletal Musculoskeletal: Denies arthralgias Integumentary Denies abscess Neurologic Neurologic: Denies headache(s) Psychiatric Psychiatric: Reports anxiety Endocrine Endocrinology: Denies cold intolerance Hematologic/Lymphatic Hematologic/Lymphatic: Denies easy bleeding Allergic/Immunologic Allergic/Immunologic ED: Denies mouth swelling EXAM Physical Exam Narrative Exam Narrative: There is is-year-old male no acute distress. Vital signs stable afebrile. H EENT exam left lower jaw gingival swelling. No abscess to drain. Mild left lateral lower jaw swelling on the outside. Tenderness. Dental cavities. No drainable abscess. Posterior pharynx normal. No trouble swallowing or breathing. No Brayan's angina. Neck nontender no lymphadenopathy. Lungs clear. Heart regular rate and rhythm no murmur. Chest wall and ribs nontender. Abdomen soft nontender. Otherwise exam unremarkable. Const Vital Signs: 05/12/24 07:44 Temperature 98.3 F Temperature Source Temporal Pulse Rate 77 Respiratory Rate 16 Blood Pressure 133/90 H Blood Pressure Mean 104 Pulse Ox 98 Oxygen Delivery Method Room Air Positive well nourished and well developed; Negative for obese, cachectic, contractures or unkempt General Appearance ED: well developed and NAD; Negative for unkempt, cachectic or contractures Nutritional Appearance: Negative for cachectic or obese HEENT HEENT Narrative: Left lower jaw swelling and tenderness. Dental infection. Gingival inflammation. No abscess to drain. No trismus. tenderness; Negative for trauma Mouth ED: No oral and palatal mucosa normal, Yes lips normal, Yes tongue normal, Yes salivary gland normal and No mouth trauma Mouth: No oral and palatal mucosa normal, lips normal, tongue normal, salivary gland normal and No mouth trauma Teeth and Gingiva: abnormal tooth and associated gingiva, caries, gingiva abnormal, poor dentition and teeth discoloration Throat: posterior oropharynx normal Eyes EOMs intact bilaterally Neck no lymphadenopathy, supple and no JVD General: normal visual inspection Lymph Lymphatic: no lymphadenopathy noted Chest Wall inspection of chest normal and palpation of chest normal Resp normal respiratory effort, no retractions and clear to auscultation bilaterally Cardio regular rate, regular rhythm, S1 normal heart sound, S2 normal heart sound and no murmurs GI normal to inspection, nondistended, normoactive bowel sounds, non-tender, non-distended and no masses Back/Spine no CVA tenderness General Back: Negative for CVA tenderness Thoracic Spine / Upper Back: Negative for thoracic spinal tenderness Extremity normal to inspection and no joint enlargement General Extremety ED: Negative for edema General Extremity: Negative for edema Neuro oriented x3, CN's II-XII intact bilaterally, moves all extremities and no focal motor deficits Sensorium / Orientation: alert, oriented to person, oriented to place and oriented to time Motor Exam: strength 5/5 throughout Psych mental status grossly normal Appearance: Negative for unkempt Attitude: No agitated Mood & Affect: Negative for depressed, anxious or tearful Skin no rashes or lesions noted and no wounds MDM MDM MDM Narrative Medical decision making narrative: 34-year-old gentleman with left lower jaw dental infection. He will be placed on Pen-Vee K 500 mg 4 times daily for 10 days follow-up with a dentist. Motrin and Tylenol for pain. Discharge Plan Triage Chief Complaint: Dental ED Provider: Kalin Vicente Dx/Rx/DC Orders Clinical Impression: Dental abscess, Pain, dental Instructions: ED Dental Pain, ED Dental Abscess Prescriptions: New penicillin V potassium 500 mg tablet 500 mg PO 4X/DAY Qty: 40 0RF No Action albuterol sulfate 90 mcg/actuation aerosol powdr breath activated 2 puff INHALATION Q6H PRN (Reason: Sob &/Or Wheezing) buspirone 15 mg tablet 15 tablet PO DAILY albuterol sulfate 1 INHALER inhaler 2 puff inhalation Q4H PRN PRN (Reason: Wheezing) Qty: 1 0RF aripiprazole 20 mg tablet 20 mg PO DAILY Patient Comments: Take 1 tablet by mouth once daily. prochlorperazine maleate [Compazine] 10 mg tablet 10 mg PO TID PRN (Reason: nausea and vomiting) Qty: 21 0RF diphenoxylate-atropine [Lomotil] 2.5-0.025 mg tablet 1 tab PO 4X/DAY PRN PRN (Reason: diarrhea) 5 Days Qty: 20 0RF Primary Care Provider: Stan Escobar Referrals: Stan Escobar, [Primary Care Provider] - [facility] [Non-Staff] - As soon as possible Activity Restrictions/Additional Instructions: You have a dental infection. You will be started on antibiotic penicillin 4 times a day for the next 10 days. [facility] the [facility] for follow-up with a dentist. Alternate Motrin and Tylenol for pain. Warm salt water rinses. Ice to your jaw. Print Language: Latvian Disposition Disposition: Home, Self Care
[2024-05-12] MEDS: Penicillin Vk 250 MG Tablet 500 MG PO (08:57)
[2024-05-12 08:59] VITALS: BP 124/78; PULSE 64; RESP 18; TEMP 36.6; O2SAT 99
== END 2024-05-12 09:00 | disposition home or self-care (01) ==
LOC: ED 08:23
PROVIDERS: Emergency Provider Emergency Medicine; PCP Pediatrics; Visit Provider Emergency Medicine
DX: K04.7 Periapical abscess without sinus (principal); R68.84 Jaw pain; J45.909 Unspecified asthma, uncomplicated; F17.210 Nicotine dependence, cigarettes, uncomplicated; Z79.899 Other long term (current) drug therapy
CPT/HCPCS: 99282